=== PATIENT | female | born 1945 | race Caucasian/White ===

== ENCOUNTER 2016-10-11 10:52 | Day surgery (SDC) | payer MEDICARE ==
[~2016-10-11] VITALS: Ht 165.1 cm; Wt 85.8 kg
[2016-10-11] VITALS (8 sets, daily range): BP systolic 158–182; BP diastolic 73–89; PULSE 65–89; RESP 13–18; O2SAT 93–99
[~2016-10-11 10:52] MED LIST: CeFAZolin 2 Gm/50 mL D5W IV Premix IV ONE; FLUO20TA28 PO; HYDR-4003 PO; Lactated Ringer's 1,000 ML IV ONE
[2016-10-11] MEDS ORDERED: Lidocaine PF 1% 30 mL Inj ONE (10:53)
[2016-10-11] MEDS ORDERED: Phenylephrine/NS-PF 100 mCg/mL 5 mL Syringe IVPUSH ONE (10:53)
[2016-10-11] MEDS ORDERED: Ondansetron 2 mg/mL 2 mL Inj ONE (10:53)
[2016-10-11] MEDS ORDERED: Propofol 10,000 mCg/mL 20 mL Inj ONE (10:53)
[2016-10-11] MEDS ORDERED: fentaNYL-PF 50 mCg/mL 2 mL Inj ONE ×2 (10:53→15:58)
[2016-10-11] MEDS ORDERED: CeFAZolin Inj 2 gm / 50mL D5W IV ONE (11:27)
[2016-10-11] MEDS ORDERED: Lactated Ringer's 1,000 ML IV ONE ×2 (11:44→17:00)
[2016-10-11] MEDS ORDERED: Lactated Ringer's 500 ML IV PRN (12:59)
[2016-10-11] MEDS ORDERED: Lactated Ringer's 1,000 ML IV SCH (12:59)
--- NOTE | 2016-10-11 12:59 | PCM.HPANE ---
Patient Data Date of Service: Oct 11, 2016 Surgeon Admitting Provider: Attending Provider:Flash Booth DO Primary Care Physician:Poppy Ball MD Other Provider:Janie Francisco Anesthesia Reason for Visit Left Distal Radius / Ulnar Styloid Fractures Ht/WT & BMI Height (Feet): 5 Height (Inches): 5 Weight (Kilograms): 85.8 Body Mass Index 31.00 Allergies Uncoded Allergies: ASPIRIN, NSAIDS (Allergy, Unknown, anaphylaxis, 10/10/16) Past Anesthesia History Anesthesia History: Denies:: Abnormal Airway, Anesthesia Reactions (no prior surgery), Difficult Intubation, Fam Anesthesia Reaction, Fam Malignant Hypertherm, Malignant Hyperthermia Diabetes History Hx Diabetes?: No MRSA MRSA: No Medications Hypertension Medication: No Home Meds Incl Beta Tereso: No Reported Medications Hydrocodone-Acetaminophen 5-325 mg 1 Each Tablet1 Tablet PO Q6H PRN For Pain Ref 0 10/10/16 Fluoxetine 20 Mg [id number] Mg PO DAILY Ref 0 10/10/16 History History of ENT Problems?: No HEENT History: Positive for:: Hearing Problem Denies:: Abnormal Airway Cataracts Difficult Intubation Dysphagia Glaucoma Sinus Problem TMJ Denture Type: None Teeth Condition: Within Normal Limits Hx of Heart Problems?: Yes Cardiovascular History: Positive for:: Heart Murmur (heard in heart murmur in high school, ) Denies:: Abdominal Aortic Aneurism Atrial Fibrillation Chest Pain Hypertension Hx of Respiratory Problem?: No Respiratory History: Denies:: Asthma COPD Dyspnea Oxygen Administration Pneumonia Pulmonary Embolism Tuberculosis Use of C-PAP Machine Use of Inhalers / NEBS Hx Neurologic Problems?: No Neurological History: Denies:: Alzheimer's Disease Dizziness Headaches Multiple Sclerosis Parkinson's Disease Seizures TIA Hx of GI Problems?: No Hx of Problems?: No Genitourinary History: Denies:: Kidney Stones Urinary Tract Infection HX of Peritoneal Dialysis: No Female Hx: Denies:: Currently Problems with Breasts? Skin History: Denies:: History Skin Disorders? Pressure Ulcers Hx Musculoskeletal Problems?: Yes Musculoskeletal History: Positive for:: Musculoskeletal Trauma (left arm fx current admission problem- fall 10/05/16) Osteoarthritis (shoulders and knee) Denies:: Back Injury Fibromyalgia Joint Replacement Myasthenia Gravis Hx of Psycho/Social Problems?: Yes Psycho Social History: Positive for:: Anxiety Hx Depression Hx Surgeries?: No Hx Any Other Health Problems?: Yes Other History: Denies:: Cancer Thyroid Disease History Blood Transfusions: Positive for:: Accept Blood Products? Denies:: Blood Transfusions Hx Diabetes: No Hx Alcohol Use: YesAlcoholic Drinks Per Day: 2-3 drinks on weekends onlyHx Substance Use: NoHave You Smoked inLast 12 mo: No Stop/Bang Treated for Sleep Apnea?: No Do You Have a CPAP Machine?: No S-Snoring: Do You Snore Loudly: No T-Tired: feel tired, fatigued: No O-Obsered: Observed not breath: No P-Blood Pressure: treated: No B- Body Mass Index > 35 kg/m2: No A- Age over 50: Yes N- Neck Large Circumference: No G- Gender Male: No GABRIELA Total Score: 1 GABRIELA Risk Assessment: Low Risk, <3 Yes Risk Assessment Category Category 1A: Patient has history of documented sleep apnea, and HAS NOT received any narcotic, sedative or anesthesia administration during this stay. Category 1B: Patient has history of documented sleep apnea, and HAS received any narcotic , sedative or anesthesia administration during this stay Category 2: Patient has SUSPECTED Obstructive Sleep Apnea, and HAS received any narcotic , sedative or anesthesia administration during this stay. Category 3: Patient has SUSPECTED Obstructive Sleep Apnea and HAS NOT received narcotic, sedative or anesthesia administration during this stay. Category 4: Outpatient in Procedural Areas with known sleep apnea or who screen positive for High Risk via the STOP/BANG questionnaire. Exam Exam Vital Signs Vital Signs Date Time Temp Pulse Resp B/P Pulse Ox O2 Delivery O2 Flow Rate FiO2 10/11/16 11:38 36.6 65 16 170/78 96 Room Air General Appearance: Alert, Oriented X3, Cooperative HEENT/AIRWAY: MP 3, Neck Movement (OK), Mouth Opening (Slightly small) Lungs: Clear to Auscultation, Normal Air Movement Heart: Regular Rate/Rhythm, Normal S1, Normal S2 Meds/Labs/Diagnostics Admission Meds Current Medications Lactated Ringer's (Lr) 1,000 ml @ ud STK-MED ONCE IV Last administered on 10/11t 11:44; Start 10/11/16 at 11:44; Stop 10/11/16 at 11:45; Status DC Plan Impression Patient chart reviewed, patient interviewed and anesthestic plan with risks, benefits, and alternatives discussed, and informed consent obtained. NPO per Anesth. Guidelines: Yes ASA Physical Status: ASA2 Mod Systemic Disease Anesthetic Plan: GA Bene/Risks/Altern/Consents: Yes HP Complete Prior to Induction: Yes Shawn Gimenez MD Oct 11, 2016 12:31
[2016-10-11] MEDS ORDERED: HYDROmorphone 1 mg/mL Inj IVPUSH PRN (13:00)
[2016-10-11] MEDS ORDERED: Dexamethasone 4 mg/mL Inj IVPUSH PRN (13:00)
[2016-10-11] MEDS ORDERED: hydrALAZINE 20 mg/mL Inj IVPUSH PRN (13:00)
[2016-10-11] MEDS ORDERED: Labetalol 5 mg/mL 4 mL Inj IV PRN (13:00)
[2016-10-11] MEDS ORDERED: EPHEDrine Sulfate 50 mg/mL Inj IVPUSH PRN (13:00)
[2016-10-11] MEDS ORDERED: MetoCLOpramide 5 mg/mL 2 mL Inj IVPUSH PRN (13:00)
[2016-10-11] MEDS ORDERED: Ondansetron 2 mg/mL 2 mL Inj IVPUSH PRN (13:00)
[2016-10-11] MEDS ORDERED: Phenylephrine 10,000 mCg/mL Inj IVPUSH PRN (13:00)
[2016-10-11] MEDS ORDERED: Atropine 0.4 mg/mL Inj IVPUSH PRN (13:00)
[2016-10-11] MEDS ORDERED: HYDROcodone-APAP 7.5-325 mg Tablet PO PRN (13:05)
[2016-10-11] MEDS ORDERED: Lidocaine 1%-Epi 1:100,000 20 mL Inj INFILTRATE ONE (13:39)
[2016-10-11] MEDS: fentaNYL-PF 50 mCg/mL 2 mL Inj IVPUSH PRN ×4 (15:34→16:10)
--- NOTE | 2016-10-11 16:01 | PCM.ANEP1 ---
Post Anesthesia PACU Phase 1 Assessment Date of Service: Oct 11, 2016 Vital Signs Vital Signs Date Time Temp Pulse Resp B/P Pulse Ox O2 Delivery O2 Flow Rate FiO2 10/11/16 15:55 37.0 79 18 177/83 94 Room Air 10/11/16 15:35 84 13 170/74 94 Room Air 10/11/16 15:20 86 14 158/89 93 Room Air 10/11/16 15:15 82 15 159/73 93 Room Air 10/11/16 15:10 89 15 160/74 93 Simple Mask 10 10/11/16 15:05 36.9 87 15 166/86 94 Simple Mask 10 10/11/16 11:38 36.6 65 16 170/78 96 Room Air Anesthetic Administered: GA Level of Alertness: Awake, talking MCBRIDE's with Equal Strength: Yes Pain: No Nausea or Vomiting: No CV Function & Hydration Stable: Yes Airway Device: Oxygen Delivery: Simple Mask Lungs: Normal Air Movement PACU Phase 2 Assessment Complications: No Follow up Care: No Patient Instructions Provided: N/A Shawn Gimenez MD Oct 11, 2016 16:01
--- NOTE | 2016-10-11 16:11 | OP ---
[address] [address] OPERATIVE REPORT PATIENT: PANKAJ MIKE : 1945 MR#: [id number] ADMIT: 10/11/2016 JOB ID: [id number] DATE OF SURGERY: 10/11/2016 PREOPERATIVE DIAGNOSIS(ES): Left three-part intra-articular distal radius fracture with concomitant ulnar styloid fracture. POSTOPERATIVE DIAGNOSIS(ES): Left three-part intra-articular distal radius fracture with concomitant ulnar styloid fracture. PROCEDURE: Open reduction, internal fixation of left three-part intra-articular distal radius fracture with closed treatment of an ulnar styloid fracture. SURGEON: Flash Booth DO. ANESTHESIA: General. HISTORY: The patient is a pleasant 71-year-old female that fell last week at [facility]. She tripped over the curb walking into [facility] and landed onto an outstretched left hand. She immediately had significant pain and swelling to the wrist. Presented to an outlying facility and was diagnosed with a distal radius and ulnar styloid fracture. She was placed in a sugar-tong splint and advised to follow up with me in the office. Upon presentation, she demonstrated a comminuted intra-articular distal radius fracture with shortening, loss of height and inclination, as well as a component of a volar Ruiz fracture. She also had a concomitant ulnar styloid fracture. I discussed with the patient, as well as her , the risks, benefits, alternatives, and indications to proceed with open reduction, internal fixation of left distal radius fracture with possible fixation also of the ulnar styloid pending the stability after fixation of the radius. They understood the risks include, but are not limited to neurovascular injury, tendon injury, infection, failure of fixation, stiffness, persistent pain, all of which may require further intervention. The patient had all questions answered. Consent was signed and placed on the chart. PROCEDURE IN DETAIL: The patient was brought to the operative suite and placed supine on the operating table. Surgical time-out was performed. Everyone in the room was in agreement. After appropriate anesthesia was obtained, a left upper arm tourniquet was applied and the left upper extremity was prepped and draped in sterile fashion. Left upper extremity was then exsanguinated and tourniquet inflated to 250 mmHg. The patient's wrist was approached with a FCR approach. The FCR tendon was identified. The sheath was incised and the tendon was retracted ulnarly. The subsheath next was incised longitudinally revealing the underlying flexor pollicis longus. The flexor pollicis longus was then swept ulnarly, revealing the underlying pronator quadratus which was released from its radial and distal margin. The fracture site was identified and manual reduction then performed. Visualization of the fracture reduction was verified under fluoroscopy. This was followed by application of an Arthrex standard volar distal radius plate along the volar cortex of the distal radius. It was held provisionally with K-wires with the position verified under fluoroscopy. A nonlocking screw was placed within the oblong hole of the shaft to pull the plate to the volar cortex of the distal radius. This was followed by application of a combination of nonlocking screws first for compression distally, followed by locking screws to complete the fixation within the distal aspect of the plate. The nonlocking screw distally was swapped out for a locking screw that was a unicortical to prevent any dorsal penetration and injury to the dorsal extensor tendons. The remaining two shaft screw holes were filled with locking screws due to the patient's soft bone quality. Multiple views of fluoroscopy were utilized to verify anatomic reduction, appropriate placement of the plate, as well as the screws, and appropriate length of the screws. The DRUJ was then stressed and was found to be stable. Thus, no fixation of the ulnar styloid was necessary. Copious irrigation was then performed followed by closure of the subcutaneous tissues with 4-0 Vicryl, followed by a running 4-0 nylon for the skin. The patient was then placed in a well-padded, well-molded volar resting splint. ESTIMATED BLOOD LOSS: Less than 5 cc. COMPLICATIONS: None. DISPOSITION: The patient tolerated the procedure well. Anesthesia was reversed and the patient was transferred to the PACU for recovery. IMPLANTS: An Arthrex standard volar distal radius plate with a combination of nonlocking and locking screws. POSTOPERATIVE PLAN: The patient will follow up with me in two weeks on the same day as [place] They are to follow up also with occupational therapist to have a short-arm brace made. She is to stay in the brace at all times for the 1st four weeks postop before initiating any range of motion exercises to the wrist.
== END 2016-10-11 23:59 | disposition home or self-care (01) ==
LOC: SAS 10:52
PROVIDERS: ATTEND Orthopaedic Surgery
DX: S52.572A Other intraarticular fracture of lower end of left radius, initial encounter for closed fracture (principal); S52.612A Displaced fracture of left ulna styloid process, initial encounter for closed fracture; M19.90 Unspecified osteoarthritis, unspecified site; F41.8 Other specified anxiety disorders; W18.09XA Striking against other object with subsequent fall, initial encounter; Y93.01 Activity, walking, marching and hiking; Y92.512 Supermarket, store or market as the place of occurrence of the external cause; Y99.8 Other external cause status
CPT/HCPCS: 25609; C1713; J0690; J2250; J2370; J2405; J3010; J7120